=== PATIENT | male | born 1995 | race Caucasian/White ===

== ENCOUNTER 2022-08-23 14:13 | Outpatient (CLI) | payer BC, SELFPAY ==
--- NOTE | 2022-08-23 14:30 | CRLHL7_ITS ---
For Patients: As a result of the Cures Act, medical imaging exams and procedure reports are released immediately into your electronic medical record. You may view this report before your referring provider. If you have questions, please contact your health care provider. Indication: Jaundice. Technique: Multisequence multiplanar MRI of the abdomen without IV contrast. Comparison: None available. Findings: Suboptimal study secondary to motion artifact on several sequences. Liver: Severe diffuse hepatic steatosis. Severe hepatomegaly, liver measures up to 30 cm in cranial caudal dimension. No suspicious focal hepatic lesion identified on unenhanced study. Bile ducts: No biliary duct dilation. Gallbladder: No gallstones. Pancreas: Unremarkable. Spleen: Unremarkable. Adrenals: Unremarkable. Kidneys: No hydronephrosis bilaterally. Retroperitoneum: No lymphadenopathy. Visualized Bowel and mesentery: Visualized bowel is nondilated. No evidence of bowel obstruction. Trace ascites. Vessels: Unremarkable for unenhanced study. Abdominal wall: No acute abdominal wall abnormality. Bones: No acute osseous abnormality. Impression: 1. Severe hepatomegaly, and severe diffuse hepatic steatosis. 2. No biliary duct dilation. 3. Trace ascites, which may be secondary to portal hypertension. Dictated by Yovanny Krueger MD @ 08/23/2022 5:20:40 PM (Electronically Signed)
[2022-08-23 16:24] LABS: Basophils Absolute Auto 0.02 K/uL (0.00-0.30); Basophils Percent Auto 0.2 % (0.0-3.0); Eosinophils Absolute Auto 0.08 K/uL (0.00-0.50); Hematocrit 25.3 % (37.0-53.0); Hemoglobin* 9.1 gm/dL (13.5-17.5); Immature Granulocytes Abs Auto 0.48 K/uL (0.00-0.30); Immature Granulocytes Pct Auto 5.7 %; Mean Corpuscular HGB Conc 36 gm/dL (32-36); Mean Corpuscular Hemoglobin 34 pg (26-34); Mean Corpuscular Volume 94 fL (80-100); Monocytes Percent Auto 13.9 % (0.0-11.0); Neutrophils Percent Auto 71.2 % (42.0-72.0); Platelet Count* 91 K/uL (140-440); RDW Coefficient of Variation % 18.1 % (11.5-15.5); Red Blood Count 2.68 m/uL (4.30-5.90); White Blood Count* 8.42 K/uL (4.50-11.00)
[2022-08-23 16:45] LABS: Albumin* 2.9 g/dL (3.3-5.0); Chloride* 84 mmol/L (96-114); Potassium* 4.5 mmol/L (3.6-5.1)
[2022-08-23 16:48] LABS: Alanine Aminotransferase* 78 U/L (4-50); Alkaline Phosphatase* 477 U/L (40-150); Aspartate Amino Transferase* 110 U/L (12-35); Blood Urea Nitrogen* 53 mg/dL (5-24); Carbon Dioxide* 18 mmol/L (20-32); Glucose* 112 mg/dL (60-115); INR 2.06 (0.91-1.10); Prothrombin Time 24.3 Seconds; Total Protein* 6.2 g/dL (6.0-8.3)
[2022-08-23 16:52] LABS: Slide Review Reflex Yes
[2022-08-23 16:55] LABS: Slide Review Acceptable Review (Acceptable)
[2022-08-23 17:03] LABS: Sodium* 120 mmol/L (135-149)
[2022-08-23 17:05] LABS: Bilirubin Total* 33.2 mg/dL (0.1-1.5); Creatinine* 16.4 mg/dL (0.5-1.5); Estimated Glomerular Filt Rate 4 ml/min
[2022-08-23 17:38] LABS: Iron* 97 ug/dL (49-181)
[2022-08-23 17:47] LABS: Percent Iron Saturation 76 % (20-50); Total Iron Binding Capacity 129 ug/dL (261-462)
[2022-08-23 18:31] LABS: HIV 1/2/P24 Combo Screen* Negative (Negative)
[2022-08-26 00:02] LABS: Transferrin 80 mg/dL (200-360)
[2022-08-26 09:59] LABS: Anti-Nuclear Ab(ANA)IgG ELISA None Detected (None Detected)
[2022-08-28 18:54] LABS: Ceruloplasmin 26 mg/dL (15-30)
== END 2022-08-23 14:14 | disposition home or self-care (01) ==
PROVIDERS: PCP Family Medicine; Visit Provider Family Medicine
DX: R17 Unspecified jaundice (principal); R16.0 Hepatomegaly, not elsewhere classified; K76.0 Fatty (change of) liver, not elsewhere classified
CPT/HCPCS: 36415; 74181; 80053; 82390; 82525; 82728; 83516; 83540; 83550; 84165; 84466; 85025; 85610; 86039; 86644; 86645; 86703; 86790